=== PATIENT | female | born 1980 | race Two or more races ===

== ENCOUNTER 2020-07-28 10:17 | Emergency (ER) | payer OTHER ==
[2020-07-28 10:24] VITALS: TEMP 98.4; BMI 36.9
[2020-07-28] MEDS ORDERED: SODIUM CHLORIDE 1,000 ML IV STA (11:07)
[2020-07-28] MEDS ORDERED: METOCLOPRAMIDE HCL INJECTION 10 MG/2 ML VIAL IVPB ONE (11:07)
[2020-07-28] MEDS ORDERED: METOCLOPRAMIDE HCL INJECTION 10 MG/2 ML VIAL ONE (11:25)
[2020-07-28 11:32] LABS: BASO % 0.4 % (0-2.0); EOS % 0.3 % (0-4.5); HEMOGLOBIN 16.1 GM/dL (10.7-15.3); LYMPH % 4.8 % (8-40); MCH 30.3 pg (25.7-33.7); MCHC 34.3 g/dl (32.0-36.0); MEAN CELL VOLUME 88.4 fl (80-96); MEAN PLT VOLUME 7.6 fl (7.5-11.1); MONO % 6.2 % (3.8-10.2); NEUT % 88.3 % (42.8-82.8); PLATELET COUNT 403 K/MM3 (134-434); RBC 5.31 M/mm3 (3.60-5.2); RDW 13.5 % (11.6-15.6); WHITE BLOOD COUNT 15.8 K/mm3 (4.0-10.0)
[2020-07-28 11:48] LABS: CHLORIDE 105 mmol/L (98-107); SODIUM 138 mmol/L (136-145)
[2020-07-28 11:50] LABS: CALCIUM 9.4 mg/dL (8.5-10.1)
[2020-07-28 11:51] LABS: ANION GAP 6 MMOL/L (8-16); BLOOD UREA NITROGEN 12.6 mg/dL (7-18); CO2 27 mmol/L (21-32); GLUCOSE,RANDOM 117 mg/dL (74-106); LIPASE 118 U/L (73-393)
[2020-07-28 11:54] LABS: CREATININE 0.7 mg/dL (0.55-1.3); SGOT/AST 32 U/L (15-37); SGPT/ALT 80 U/L (13-61)
[2020-07-28 11:55] LABS: BILIRUBIN,TOTAL 0.4 mg/dL (0.2-1); TOT PROT 8.4 g/dl (6.4-8.2)
[2020-07-28 11:56] LABS: ALK PHOS 98 U/L (45-117)
[2020-07-28 13:04] LABS: URINE APPEARANCE CLOUDY; URINE BILIRUBIN NEGATIVE (NEGATIVE); URINE COLOR YELLOW; URINE GLUCOSE (UA) NEGATIVE (NEGATIVE); URINE KETONE TRACE (NEGATIVE); URINE LEUK ESTERASE NEGATIVE (NEGATIVE); URINE NITRITE NEGATIVE (NEGATIVE); URINE PROTEIN NEGATIVE (NEGATIVE); URINE UROBILINOGEN 0.2 mg/dL (0.2-1.0)
[2020-07-28 13:07] LABS: HCG,QUALITATIVE URINE Negative
[2020-07-28 13:35] VITALS: BP 128/79; PULSE 72
== END 2020-07-28 13:35 | disposition home or self-care (01) ==
LOC: JER 10:17
PROC: 3E0333Z Introduction of Anti-inflammatory into Peripheral Vein, Percutaneous Approach (ICD-10-PCS; principal; 2020-07-28)
PROC: 3E0337Z Introduction of Electrolytic and Water Balance Substance into Peripheral Vein, Percutaneous Approach (ICD-10-PCS; 2020-07-28)
DX: R42 Dizziness and giddiness (principal); R10.84 Generalized abdominal pain; R19.7 Diarrhea, unspecified
CPT/HCPCS: 36415; 80053; 81003; 82550; 82553; 83690; 84484; 84703; 85025; 87086; 93005; 93010; 99284-25